=== PATIENT | female | born 1990 | race African-American/Black ===

== ENCOUNTER 2020-04-08 15:47 | Emergency (ER) | payer SELFPAY ==
[2020-04-09 17:58] LABS: SARS-CoV-2 MS2 Positive; SARS-CoV-2 N Gene Negative; SARS-CoV-2 S Gene Negative; SARS-CoV-2 by NAA Not Detected (NotDetected); SARS-CoV-2 orf1ab Negative
== END 2020-04-08 16:30 | disposition home or self-care (01) ==
LOC: NAV ERS 15:47
DX: B34.9 Viral infection, unspecified (principal); Z20.828 Contact with and (suspected) exposure to other viral communicable diseases; F17.210 Nicotine dependence, cigarettes, uncomplicated
CPT/HCPCS: 87635; 99283; U0003

== ENCOUNTER 2022-03-21 10:58 | Emergency (ER) | payer SELFPAY | END 2022-03-21 11:20 | disposition home or self-care (01) | LOC: NAV ERS 10:58 | DX: B34.9 Viral infection, unspecified (principal); F17.210 Nicotine dependence, cigarettes, uncomplicated | CPT/HCPCS: 99283 ==

== ENCOUNTER 2023-11-05 15:00 | Emergency (ER) | payer OTHER, SELFPAY | END 2023-11-05 16:35 | disposition home or self-care (01) | LOC: NAV ERS 15:00 | DX: S92.515A Nondisplaced fracture of proximal phalanx of left lesser toe(s), initial encounter for closed fracture (principal); F17.210 Nicotine dependence, cigarettes, uncomplicated; W22.09XA Striking against other stationary object, initial encounter ==